=== PATIENT | male | born 1940 | race Caucasian/White ===

== ENCOUNTER 2023-07-12 15:00 | Inpatient (IN) | payer MEDICARE, BC ==
[~2023-07-12] VITALS: Ht 172.7 cm; Wt 74.8 kg
[2023-07-12] MEDS ORDERED: NALOXONE NASAL SPRAY 4 MG SPRAY NS ONE (15:03)
[2023-07-12] MEDS ORDERED: NALOXONE HCL 0.4 MG/ML AMPUL ONE (15:04)
[2023-07-12] MEDS ORDERED: IV NORMAL SALINE 500 ML BAG IV ONE (15:15)
[2023-07-12] MEDS ORDERED: TOBR5DRO46 EACHEYE (15:23)
[2023-07-12] MEDS ORDERED: ROSU10TA2 PO (15:23)
[2023-07-12] MEDS ORDERED: AMLO10TA59 PO (15:23)
[2023-07-12] MEDS ORDERED: IMIP25TA6 (15:23)
[2023-07-12] MEDS ORDERED: CEPH500C2 PO (15:23)
[2023-07-12] MEDS ORDERED: METH4TAB16 PO (15:23)
[2023-07-12 15:29] LABS: BASOPHILS # (AUTO) 0.1 K/UL (0.0-0.2); BASOPHILS % (AUTO) 0.9 % (0.0-2.0); EOSINOPHILS % (AUTO) 0.2 % (0.0-7.0); HEMATOCRIT 44.6 % (36.7-47.1); HEMOGLOBIN 15.4 g/dL (12.5-16.3); LYMPHOCYTES # (AUTO) 1.6 K/uL (0.8-4.8); MEAN CORPUSCULAR HEMOGLOBIN 29.1 uug (23.8-33.4); MEAN CORPUSCULAR HGB CONC 35 g/dL (32.5-36.3); MEAN CORPUSCULAR VOLUME 84.4 fL (73.0-96.2); MONOCYTES # (AUTO) 0.5 K/uL (0.1-1.30); MONOCYTES % (AUTO) 3.8 % (0.0-11.0); NEUTROPHILS # (AUTO) 9.9 K/uL (1.8-8.9); NEUTROPHILS % (AUTO) 82.1 % (38.5-71.5); PLATELET COUNT (AUTO) 165 K/uL (152-348); RED BLOOD CELL COUNT(AUTO) 5.28 MIL/uL (4.06-5.63); RED CELL DISTRIBUTION WIDTH 13.8 % (12.1-16.2); WHITE BLOOD COUNT (AUTO) 12.1 K/uL (3.6-10.2)
[2023-07-12] MEDS ORDERED: NALOXONE HCL 0.4 MG/ML AMPUL IV ONE (15:30)
[2023-07-12 15:38] LABS: DIFFERENTIAL COMMENT 1
[2023-07-12 15:48] LABS: CALCIUM 8.1 mg/dL (8.5-10.1); CARBON DIOXIDE 29 mmol/L (21-32); CHLORIDE 101 mmol/L (98-107); CREATININE 1.2 mg/dL (0.6-1.3); GLUCOSE 166 mg/dL (74-106); POTASSIUM 3.2 mmol/L (3.5-5.1); SODIUM SERUM 140 mmol/L (136-145); UREA NITROGEN, BLOOD 14 mg/dL (7-18)
[2023-07-12 16:01] LABS: ALANINE AMINOTRANSFERASE 21 U/L (16-63); ALBUMIN 3.4 g/dL (3.4-5.0); ALKALINE PHOSPHATASE 78 U/L (50-136); ASPARTATE AMINOTRANSFERASE 18 U/L (15-37); BILIRUBIN,DIRECT 0.2 mg/dL (0.0-0.2); BILIRUBIN,TOTAL 0.6 mg/dL (0.2-1.0); TOTAL PROTEIN, SERUM 6.8 g/dL (6.4-8.2)
[2023-07-12] MEDS ORDERED: POTASSIUM CHLORIDE 20 MEQ TAB.PRT.SR PO ONE ×2 (17:45→23:45)
[2023-07-12] MEDS: MAGNESIUM SULFATE/D5W 100 ML IV SCH ×2 (17:48→18:40)
[2023-07-12] MEDS ORDERED: FAMOTIDINE. 20 MG/2 ML VIAL IV ONE (18:52)
[2023-07-12] MEDS ORDERED: IV NS 1000 ML 1,000 ML IV PRN (23:45)
[2023-07-12] MEDS ORDERED: REMEDY ESSENTIAL ZINC PASTE 113 GM TP PRN (23:45)
[2023-07-12] MEDS ORDERED: ACETAMINOPHEN 325 MG TABLET PO PRN (23:45)
[2023-07-12] MEDS ORDERED: ZOLPIDEM 5 MG TABLET PO PRN (23:45)
[2023-07-12] MEDS ORDERED: HYDROCODONE/APAP 5-325MG TABLET PO PRN (23:45)
[2023-07-12] MEDS ORDERED: ONDANSETRON 4 MG/2 ML VIAL IV PRN (23:45)
[2023-07-12] MEDS ORDERED: MAGNESIUM HYDROXIDE 30 ML LIQUID UDC PO PRN (23:45)
[2023-07-12 23:56] VITALS: O2SAT 98
[2023-07-13] VITALS: BP 115/65; TEMP 98.5; O2SAT 97
[2023-07-13] MEDS ORDERED: TOBRAMYCIN 0.3% OPHT DROP 5 ML BOTTLE ONE (00:40)
[2023-07-13] MEDS: CEphaleXIN 500 MG CAPSULE PO SCH ×2 (00:47→09:28)
[2023-07-13] MEDS ORDERED: POTASSIUM CHLORIDE 20 MEQ TAB.PRT.SR ONE (00:53)
[2023-07-13] MEDS: TOBRAMYCIN/DEXAMETH OPHT DROP 2.5 ML BOTTLE EACHEYE SCH ×2 (00:55→06:43)
[2023-07-13 04:00] VITALS: BP 116/63; TEMP 98.4; O2SAT 99
[2023-07-13 06:29] LABS: BASOPHILS # (AUTO) 0.1 K/UL (0.0-0.2); BASOPHILS % (AUTO) 0.8 % (0.0-2.0); EOSINOPHILS # (AUTO) 0.1 K/uL (0.0-0.7); EOSINOPHILS % (AUTO) 0.8 % (0.0-7.0); HEMATOCRIT 43.2 % (36.7-47.1); HEMOGLOBIN 15.1 g/dL (12.5-16.3); LYMPHOCYTES % (AUTO) 23.6 % (20.5-51.5); MEAN CORPUSCULAR HEMOGLOBIN 29.7 uug (23.8-33.4); MEAN CORPUSCULAR HGB CONC 35 g/dL (32.5-36.3); MONOCYTES # (AUTO) 0.4 K/uL (0.1-1.30); MONOCYTES % (AUTO) 4.8 % (0.0-11.0); NEUTROPHILS # (AUTO) 5.8 K/uL (1.8-8.9); PLATELET COUNT (AUTO) 164 K/uL (152-348); RED BLOOD CELL COUNT(AUTO) 5.08 MIL/uL (4.06-5.63); RED CELL DISTRIBUTION WIDTH 13.8 % (12.1-16.2); WHITE BLOOD COUNT (AUTO) 8.3 K/uL (3.6-10.2)
[2023-07-13 06:47] LABS: DIFFERENTIAL COMMENT 1
[2023-07-13 06:56] LABS: CARBON DIOXIDE 28 mmol/L (21-32); CHLORIDE 106 mmol/L (98-107); CHOLESTEROL 114 mg/dL (<200); CREATININE 1.1 mg/dL (0.6-1.3); GLUCOSE 113 mg/dL (74-106); HDL CHOLESTEROL 61 mg/dL (40-60); MAGNESIUM 2.5 mg/dL (1.8-2.4); POTASSIUM 4.9 mmol/L (3.5-5.1); SODIUM SERUM 140 mmol/L (136-145); TRIGLYCERIDES 86 MG/DL (30-150); UREA NITROGEN, BLOOD 10 mg/dL (7-18)
[2023-07-13 07:11] LABS: CALCIUM 7.9 mg/dL (8.5-10.1)
[2023-07-13] MEDS ORDERED: CEphaleXIN 500 MG CAPSULE PO SCH (09:00)
[2023-07-13] MEDS ORDERED: AMLODIPINE 10 MG TABLET PO SCH (09:00)
[2023-07-13 09:29] VITALS: BP 118/61
[2023-07-13] MEDS ORDERED: ATORVASTATIN 20 MG TABLET PO SCH (21:00)
== END 2023-07-13 12:00 | disposition left against medical advice (07) | DRG 189 ==
LOC: ER 15:00 → TELE3 20:48
PROVIDERS: ADMIT Nurse Practitioner Acute Care; ATTEND Nurse Practitioner Acute Care
DX: J95.821 Acute postprocedural respiratory failure (principal); E87.6 Hypokalemia; E78.5 Hyperlipidemia, unspecified; D72.829 Elevated white blood cell count, unspecified; Z96.89 Presence of other specified functional implants; Z53.29 Procedure and treatment not carried out because of patient's decision for other reasons; I10 Essential (primary) hypertension
CPT/HCPCS: 36415; 71045; 83735; 84100; 84484; 85025; 93005; A6213; G0378; J2310; J3475; J3490; J7040